=== PATIENT | male | born 1985 | race Caucasian/White ===

== ENCOUNTER 2016-09-15 02:19 | Emergency (ER) | payer SELFPAY ==
[~2016-09-15] VITALS: Ht 185.4 cm; Wt 95.0 kg
[2016-09-15 08:10] VITALS: BP 92/51
== END 2016-09-15 11:51 | disposition home or self-care (01) ==
LOC: ED 05:22
DX: F10.229 Alcohol dependence with intoxication, unspecified (principal); F15.129 Other stimulant abuse with intoxication, unspecified
CPT/HCPCS: 99283